=== PATIENT | male | born 1990 | race African-American/Black ===

== ENCOUNTER 2021-07-15 14:06 | Emergency (ER) | payer SELFPAY ==
[~2021-07-15] VITALS: Ht 162.6 cm; Wt 69.0 kg
[2021-07-15 14:15] VITALS: BP 124/83
--- NOTE | 2021-07-15 14:33 | PHYS DOC ---
General Adult EDM: Chief Complaint: PSYCH EVALUATION HPI: HPI: Patient is a 31-year-old male who presents to the emergency department today for psychiatric evaluation. Patient is reporting depression. He reports that he has been depressed since his son was murdered in April of last year. He reports a history of schizophrenia, ADHD, PTSD, bipolar disorder. He reports that he used to be on medications but after his son he stopped taking them. He is unsure what medications that he was previously prescribed. [facility]. Patient denies any complaints, pain,, suicidal or homicidal ideation. She reports he like to be set up with outpatient services. Review of Systems: Review of Systems: Constitutional: negative unless reported in HPI Eyes: negative unless reported in HPI HENT: negative unless reported in HPI Respiratory: negative unless reported in HPI Cardiovascular: negative unless reported in HPI GI: negative unless reported in HPI : negative unless reported in HPI Musculoskeletal: negative unless reported in HPI Integument: negative unless reported in HPI Neurologic: negative unless reported in HPI Endocrine: negative unless reported in HPI Lymphatic: negative unless reported in HPI Psychiatric: negative unless reported in HPI Physical Exam: PE: Constitutional: Well developed, well nourished, no acute distress, non-toxic appearance. [] HENT: Normocephalic, atraumatic, bilateral external ears normal, oropharynx moist, no oral exudates, nose normal. [] Eyes: PERRL, EOMI, conjunctiva normal, no discharge. [] Neck: Normal range of motion, no stridor Cardiovascular:Heart rate regular rhythm, no murmur [] Lungs & Thorax: Bilateral breath sounds clear to auscultation [] Abdomen: Bowel sounds normal, soft, no tenderness, no masses, no pulsatile masses. [] Skin: Warm, dry, no erythema, no rash. [] Back: Normal range of motion Extremities: No tenderness, no cyanosis, no clubbing, ROM intact, no edema. [] Neurologic: Alert and oriented X 3, normal motor function, normal sensory function, no focal deficits noted. [] Psychologic: Affect normal, judgement normal, mood normal. [] EKG: EKG: [] Radiology/Procedures: Radiology/Procedures: [] Heart Score: C/O Chest Pain: N/A Risk Factors: Risk Factors: DM, Current or recent (<one month) smoker, HTN, HLP, family history of CAD, obesity. Risk Scores: Score 0 - 3: 2.5% MACE over next 6 weeks - Discharge Home Score 4 - 6: 20.3% MACE over next 6 weeks - Admit for Clinical Observation Score 7 - 10: 72.7% MACE over next 6 weeks - Early Invasive Strategies Course & Med Decision Making: Course & Med Decision Making Pertinent Labs and Imaging studies reviewed. (See chart for details) Presents to the emergency department after feeling depressed since his son in April. Patient has history of schizophrenia, PTSD, bipolar disorder needs to be on medications and follow-up with the [facility] but that stopped in April after his son was murdered. Patient is not seeking any inpatient placement but would like to be set up with outpatient resources. He states that he would like to be set up with outpatient services through the [facility] also. Patient has no complaints he is denying any pain, suicidal or homicidal ideation. Patient will be evaluated by member of the psychiatric assessment team. Patient was assessed by the psychiatric assessment team and was given resources for psychiatric therapy. Patient was given resource information and brochures for the [facility]. Safety plan was developed between patient and the psychiatric assessment team. I discussed with patient all findings and diagnostic testing as well as the need to follow-up with PCP for further evaluation and treatment or return to the ER if any new or worsening symptoms. Strict return precautions were also discussed at length. Patient voiced understanding and agreement with the plan. Patient is hemodynamically stable at the time of disposition. Dragon Disclaimer: Rudy Disclaimer: This electronic medical record was generated, in whole or in part, using a voice recognition dictation system. Departure Departure: Impression: Primary Impression: Grief Disposition: 01 HOME / SELF CARE / HOMELESS Condition: GOOD Referrals: PCP,NO (PCP) Patient Instructions: Grief Reaction Additional Instructions: He was seen in the emergency department today for psychiatric evaluation. Please follow-up with the resources provided to you by the psychiatric assessment team. Please follow-up with the [facility]. Please adhere to the safety plan that was developed today in the ER. Return to the emergency department if you develop any suicidal or homicidal ideation. THA FAJARDO APRN Jul 15, 2021 14:33
== END 2021-07-15 17:24 | disposition home or self-care (01) ==
LOC: ER 14:06
DX: F43.21 Adjustment disorder with depressed mood (principal); F20.9 Schizophrenia, unspecified; F90.9 Attention-deficit hyperactivity disorder, unspecified type; F31.9 Bipolar disorder, unspecified; F43.10 Post-traumatic stress disorder, unspecified
CPT/HCPCS: 99281